=== PATIENT | female | born 1950 | race Caucasian/White ===

== ENCOUNTER → 2017-01-26 | Outpatient (CLI) | payer MEDICARE, OTHER ==
[~2017-01-26] MED LIST: ACTONEL PO; ADVIL 200MG TA200 MG PO; ASPIRIN 81M81 MG/TA2 PO; ATENOLOL25 MG PO; B-12 100 MCG PO; BENADRYL25 M2 PO; BETAPACE 120MG120 MG PO; CARDIZEM CD 18180 MG PO; CELEBREX 200MG200 MG; CITALOPRAM HYDR20 MG; ELIQUIS 5MG PO; EXCEDRIN 250 MG1 TAB PO; INDERAL 10MG10 MG PO; INDERAL LA160 MG PO; INDERAL40 MG PO; MAGNESIUM250 M1 PO; MULTAQ400 MG PO; NATURAL MAGNES200 MG PO; NORCO 325 MG-51 TAB PO; NORVASC 10MG10 MG PO; PREMARIN 0.9MG0.9 MG PO; PRILOSEC 20MG20 MG PO; PRILOSEC10 MG PO
== END ==
LOC: COL.RAD 13:11
PROVIDERS: Urology
DX: D41.02 Neoplasm of uncertain behavior of left kidney (principal); K44.9 Diaphragmatic hernia without obstruction or gangrene; Z85.520 Personal history of malignant carcinoid tumor of kidney; Z90.5 Acquired absence of kidney; Z90.49 Acquired absence of other specified parts of digestive tract; Z90.710 Acquired absence of both cervix and uterus
CPT/HCPCS: Q9967

== ENCOUNTER 2017-05-08 15:00 | Outpatient (RCR) | payer MEDICARE, OTHER | END 2017-06-16 11:34 | disposition still patient (30) | LOC: WSPT 15:00 | DX: M25.561 Pain in right knee (principal); M25.562 Pain in left knee | CPT/HCPCS: G8978-GP; G8979-GP ==

== ENCOUNTER → 2017-08-07 | Outpatient (CLI) | payer MEDICARE, OTHER ==
[~2017-08-07] MED LIST changes: +B-12 500 MCG; +B-12 500 MCG PO; +BENADRYL ALLERG25 M2 PO; +CEPHALEXIN500 M1 PO; +DAZIDOX10 MG PO; +FLEXERIL 1010 MG/TAB PO; +LASIX 20MG TABL20 MG PO; +PERCOCET 325 MG1 TAB PO; +POTASSIUM GLUC595 M1 PO; +PRINIVIL10 MG PO; +TOPROL XL 50MG50 MG PO; +TOPROL XL100 MG PO
== END ==
LOC: COL.RAD 13:24
DX: Z01.812 Encounter for preprocedural laboratory examination (principal); N28.89 Other specified disorders of kidney and ureter
CPT/HCPCS: Q9967

== ENCOUNTER 2017-12-07 11:49 | Inpatient (IN) | payer MEDICARE, OTHER ==
[2017-12-07] VITALS (130 sets, daily range): BP systolic 128–141; BP diastolic 66–94; PULSE 94–125; TEMP 97.9–98.6; O2SAT 88–100
[~2017-12-07] VITALS: Ht 167.6 cm; Wt 109.9 kg
[~2017-12-07 11:49] MED LIST changes: -B-12 500 MCG; -B-12 500 MCG PO; -BENADRYL ALLERG25 M2 PO; -CEPHALEXIN500 M1 PO; -DAZIDOX10 MG PO; -FLEXERIL 1010 MG/TAB PO; -LASIX 20MG TABL20 MG PO; -PERCOCET 325 MG1 TAB PO; -POTASSIUM GLUC595 M1 PO; -PRINIVIL10 MG PO; -TOPROL XL 50MG50 MG PO; -TOPROL XL100 MG PO
[2017-12-07] MEDS ORDERED: ELIQUIS 5MG PO (12:09)
[2017-12-07 13:02] LABS: INFLUENZA A NEGATIVE; INFLUENZA B NEGATIVE
[2017-12-07 13:15] LABS: BASO % 0.7 % (0.0-2.0); EOS % 0.7 % (0-4.0); GRAN # 3.2 (1.4-6.5); GRAN % 56.3 % (42.2-75.2); HEMATOCRIT 39.9 % (37.0-47.0); HEMOGLOBIN 13.1 g/dl (12.5-16.0); LYMPH # 1.9 (1.2-3.4); LYMPH % 33.6 % (20.0-51.0); MEAN CELL VOLUME 83 fl (80.0-100.0); MEAN CORPUSCULAR HEMOGLOBIN 27 pg (27.0-31.0); MEAN CORPUSCULAR HGB CONC 33 g/dl (33.0-37.0); MEAN PLATELET VOLUME 11.6 fl (7.4-10.4); MONO # 0.5 (0.1-0.6); MONO % 8.4 % (1.7-9.3); PLATELET COUNT 225 K/mm3 (130-400)
[2017-12-07 13:28] LABS: ALANINE AMINOTRANSFERASE 28 U/L (9-52); ALBUMIN 4.5 gm/dL (3.5-5.0); ALKALINE PHOSPHATASE 127 U/L (50-136); ANION GAP 14 mmol/L (7-16); AST,SGOT 25 U/L (15-37); BILIRUBIN,TOTAL 0.5 mg/dL (0.0-1.0); BLOOD UREA NITROGEN 28 mg/dL (7-17); CALCIUM 11.1 mg/dL (8.4-10.2); CARBON DIOXIDE 18 mmol/L (22-30); CHLORIDE 107 mmol/L (98-107); CREATININE, serum 1.93 mg/dL (0.52-1.25); GLUCOSE 108 mg/dL (74-106); MAGNESIUM 1.9 mg/dL (1.6-2.3); PHOSPHOROUS 2.8 mg/dL (2.5-4.5); POTASSIUM 4.1 mmol/L (3.4-5.0); SODIUM 139 mmol/L (137-145); TOTAL PROTEIN 8.3 gm/dL (6.4-8.2)
[2017-12-07 13:43] LABS: TROPONIN-I < 0.012 ng/mL (0.000-0.034)
[2017-12-07] MEDS ORDERED: PERCOCET 325 MG1 TAB PO (13:46)
[2017-12-07] MEDS ORDERED: POTASSIUM GLUC595 M1 PO (13:46)
[2017-12-07] MEDS ORDERED: TOPROL XL 50MG50 MG PO (13:47)
[2017-12-07] MEDS ORDERED: FLEXERIL 1010 MG/TAB PO (13:47)
[2017-12-07] MEDS ORDERED: BENADRYL ALLERG25 M2 PO (13:49)
[2017-12-07] MEDS ORDERED: B-12 500 MCG (14:43)
[2017-12-07] MEDS ORDERED: B-12 500 MCG PO (14:46)
[2017-12-08] VITALS (8 sets, daily range): BP systolic 104–132; BP diastolic 51–96; PULSE 71–110; TEMP 97.8–98.4
[2017-12-09 00:14] VITALS: BP 98/54; PULSE 105; TEMP 98.2
[2017-12-09 04:27] VITALS: BP 115/52; PULSE 61; TEMP 98.3
[2017-12-09] MEDS ORDERED: TOPROL XL100 MG PO (07:32)
[2017-12-09 08:07] VITALS: BP 142/76; PULSE 70; TEMP 98.1
== END 2017-12-09 09:29 | disposition home or self-care (01) | DRG 309 ==
LOC: COL.ER 11:49 → ICU 13:04 → MEDICAL 13:04
PROVIDERS: Emergency Medicine
DX: I48.0 Paroxysmal atrial fibrillation (principal); C64.2 Malignant neoplasm of left kidney, except renal pelvis; E86.0 Dehydration; I10 Essential (primary) hypertension; Z90.5 Acquired absence of kidney; M51.36 Other intervertebral disc degeneration, lumbar region
CPT/HCPCS: J7030

== ENCOUNTER 2018-01-04 07:36 | Day surgery (SDC) | payer MEDICARE, OTHER ==
[~2018-01-04] VITALS: Ht 165.1 cm; Wt 111.4 kg
[~2018-01-04 07:36] MED LIST changes: +B-12 500 MCG; +B-12 500 MCG PO; +BENADRYL ALLERG25 M2 PO; +FLEXERIL 1010 MG/TAB PO; +PERCOCET 325 MG1 TAB PO; +POTASSIUM GLUC595 M1 PO; +TOPROL XL 50MG50 MG PO; +TOPROL XL100 MG PO
[2018-01-04] MEDS ORDERED: TOPROL XL100 MG PO (08:28)
[2018-01-04] MEDS ORDERED: BETAPACE 120MG120 MG PO (08:30)
[2018-01-04] MEDS ORDERED: NORVASC 10MG10 MG PO (08:30)
[2018-01-04 08:38] VITALS: BP 146/93; PULSE 83; TEMP 97.9
[2018-01-04 08:43] LABS: INR 1.4 (0.8-3.0); PROTHROMBIN TIME 16.5 SECONDS (9.7-12.8)
[2018-01-04 08:45] LABS: POTASSIUM 4.6 mmol/L (3.4-5.0)
[2018-01-04 09:13] VITALS: BP 154/107; PULSE 104
[2018-01-04 09:19] LABS: THYROID STIMULATING HORMONE 5.14 uIU/mL (0.465-4.680)
== END 2018-01-04 12:07 | disposition home or self-care (01) ==
LOC: COL.CAR 07:36
PROVIDERS: Internal Medicine Cardiovascular Disease
DX: I48.0 Paroxysmal atrial fibrillation (principal); Z79.01 Long term (current) use of anticoagulants; R60.0 Localized edema; I48.91 Unspecified atrial fibrillation; I10 Essential (primary) hypertension; E78.5 Hyperlipidemia, unspecified; Z85.528 Personal history of other malignant neoplasm of kidney; Z90.5 Acquired absence of kidney; Z68.41 Body mass index [BMI] 40.0-44.9, adult; K21.9 Gastro-esophageal reflux disease without esophagitis; F32.9 Major depressive disorder, single episode, unspecified; E03.9 Hypothyroidism, unspecified; I34.0 Nonrheumatic mitral (valve) insufficiency; Z82.49 Family history of ischemic heart disease and other diseases of the circulatory system; Z79.82 Long term (current) use of aspirin; Z88.8 Allergy status to other drugs, medicaments and biological substances
CPT/HCPCS: J2250; J3010

== ENCOUNTER → 2018-03-29 | Outpatient (CLI) | payer MEDICARE, OTHER | LOC: COL.RAD 10:00 | DX: C64.2 Malignant neoplasm of left kidney, except renal pelvis (principal); I48.0 Paroxysmal atrial fibrillation; I51.7 Cardiomegaly; K44.9 Diaphragmatic hernia without obstruction or gangrene; Z90.5 Acquired absence of kidney; Z90.49 Acquired absence of other specified parts of digestive tract; Z90.710 Acquired absence of both cervix and uterus ==

== ENCOUNTER → 2018-06-10 | Outpatient (CLI) | payer MEDICARE, OTHER | LOC: COL.RAD 13:33 | DX: M43.16 Spondylolisthesis, lumbar region (principal); M48.07 Spinal stenosis, lumbosacral region; M51.27 Other intervertebral disc displacement, lumbosacral region; M51.37 Other intervertebral disc degeneration, lumbosacral region ==

== ENCOUNTER → 2018-06-17 | Outpatient (CLI) | payer MEDICARE, OTHER ==
[~2018-06-17] MED LIST changes: +PRINIVIL10 MG PO
== END ==
LOC: COL.RAD 12:17
DX: E04.2 Nontoxic multinodular goiter (principal)

== ENCOUNTER 2018-06-28 13:15 | Outpatient (RCR) | payer MEDICARE, OTHER ==
[~2018-06-28 13:15] MED LIST changes: +DAZIDOX10 MG PO
== END 2018-07-13 15:41 | disposition home or self-care (01) ==
LOC: WSPT 13:15
DX: M54.5 Low back pain (principal); M25.561 Pain in right knee
CPT/HCPCS: G8978-GP; G8979-GP

== ENCOUNTER 2018-07-27 11:02 | Outpatient (CLI) | payer MEDICARE, OTHER ==
[~2018-07-27] VITALS: Ht 167.6 cm; Wt 118.5 kg
[2018-07-27] MEDS ORDERED: LASIX 20MG TABL20 MG PO (11:49)
[2018-07-27 11:52] VITALS: BP 137/70; PULSE 69; TEMP 98.3
[2018-07-27] MEDS ORDERED: CEPHALEXIN500 M1 PO (14:03)
[2018-07-27 14:25] VITALS: BP 143/72; PULSE 62
== END 2018-07-27 15:15 | disposition home or self-care (01) ==
LOC: COL.CAR 11:02
DX: I48.1 Persistent atrial fibrillation (principal); I10 Essential (primary) hypertension; E66.9 Obesity, unspecified; E78.5 Hyperlipidemia, unspecified; J30.9 Allergic rhinitis, unspecified; F32.9 Major depressive disorder, single episode, unspecified; K21.9 Gastro-esophageal reflux disease without esophagitis; E03.9 Hypothyroidism, unspecified; G43.909 Migraine, unspecified, not intractable, without status migrainosus; F41.9 Anxiety disorder, unspecified; M19.90 Unspecified osteoarthritis, unspecified site; Z90.5 Acquired absence of kidney; Z90.710 Acquired absence of both cervix and uterus; Z79.01 Long term (current) use of anticoagulants; Z79.82 Long term (current) use of aspirin; Z85.53 Personal history of malignant neoplasm of renal pelvis; Z82.49 Family history of ischemic heart disease and other diseases of the circulatory system

== ENCOUNTER → 2019-06-21 | Outpatient (CLI) | payer MEDICARE, OTHER ==
[~2019-06-21] MED LIST changes: +CEPHALEXIN500 M1 PO; +LASIX 20MG TABL20 MG PO
== END ==
LOC: COL.RAD 13:11
DX: K44.9 Diaphragmatic hernia without obstruction or gangrene (principal); Z90.5 Acquired absence of kidney; Z90.710 Acquired absence of both cervix and uterus; Z90.49 Acquired absence of other specified parts of digestive tract; Z85.528 Personal history of other malignant neoplasm of kidney

== ENCOUNTER → 2019-11-22 | Outpatient (CLI) | payer MEDICARE, OTHER | LOC: COL.VAS 08:33 | DX: C64.9 Malignant neoplasm of unspecified kidney, except renal pelvis (principal); R60.0 Localized edema; I10 Essential (primary) hypertension; R68.2 Dry mouth, unspecified; Z86.79 Personal history of other diseases of the circulatory system ==

== ENCOUNTER → 2020-08-14 | Outpatient (CLI) | payer MEDICARE, OTHER | LOC: COL.VAS 12:06 | DX: I08.1 Rheumatic disorders of both mitral and tricuspid valves (principal) ==

== ENCOUNTER → 2020-11-06 | Outpatient (CLI) | payer MEDICARE, OTHER | LOC: COL.RAD 09:05 | DX: C64.9 Malignant neoplasm of unspecified kidney, except renal pelvis (principal); E78.5 Hyperlipidemia, unspecified; E83.52 Hypercalcemia; Z85.528 Personal history of other malignant neoplasm of kidney | CPT/HCPCS: A9503 ==

== ENCOUNTER 2021-01-28 09:56 | Day surgery (SDC) | payer MEDICARE, OTHER ==
[2021-01-28] VITALS (7 sets, daily range): BP systolic 138–152; BP diastolic 78–113; PULSE 60–99; TEMP 99.7
[~2021-01-28] VITALS: Ht 167.6 cm; Wt 114.1 kg
[2021-01-28] MEDS ORDERED: ULTRAM 50MG TAB50 MG PO (10:47)
[2021-01-28] MEDS ORDERED: CELEBREX 1100 MG/CAP PO (10:48)
[2021-01-28 11:12] LABS: MEAN CELL VOLUME 67 fl (80.0-100.0); MEAN CORPUSCULAR HGB CONC 28 g/dl (33.0-37.0); MEAN PLATELET VOLUME 10.3 fl (7.4-10.4); PLATELET COUNT 262 K/mm3 (130-400); RED BLOOD COUNT 3.87 M/mm3 (4.10-5.30); REDCELL DISTRIBUTION WIDTH-CV 19.3 % (11.5-14.5)
[2021-01-28 11:21] LABS: HEMOGLOBIN 7.2 g/dl (12.5-16.0); MEAN CORPUSCULAR HEMOGLOBIN 19 pg (27.0-31.0)
[2021-01-28 11:26] LABS: CALCIUM 10.5 mg/dL (8.4-10.2); CREATININE, serum 1.51 (0.52-1.25); MAGNESIUM 1.9 mg/dL (1.6-2.3); POTASSIUM 4.7 mmol/L (3.4-5.0)
--- NOTE | 2021-01-28 11:31 | NUR ---
Report from Ismael HALL. VSS. Pt resting comfortably in bed.
[2021-01-28] MEDS ORDERED: BETAPACE 80MG80 MG PO (11:53)
[2021-01-28 11:55] LABS: THYROID STIMULATING HORMONE 4.04 uIU/mL (0.465-4.680)
[2021-01-28] MEDS ORDERED: NORVASC 5MG5 MG/TAB PO (11:57)
--- NOTE | 2021-01-28 13:15 | NUR ---
INT discontinued intact. Discharge instrcutions given.
--- NOTE | 2021-01-28 13:50 | NUR ---
Transferred to private car by tino
== END 2021-01-28 13:50 | disposition home or self-care (01) ==
LOC: COL.CAR 09:56
PROVIDERS: Internal Medicine Cardiovascular Disease
DX: I48.0 Paroxysmal atrial fibrillation (principal); I10 Essential (primary) hypertension; E78.5 Hyperlipidemia, unspecified; E03.9 Hypothyroidism, unspecified; G43.909 Migraine, unspecified, not intractable, without status migrainosus; K21.9 Gastro-esophageal reflux disease without esophagitis; M19.90 Unspecified osteoarthritis, unspecified site; F32.9 Major depressive disorder, single episode, unspecified; Z95.828 Presence of other vascular implants and grafts; Z85.53 Personal history of malignant neoplasm of renal pelvis; Z90.5 Acquired absence of kidney; Z88.8 Allergy status to other drugs, medicaments and biological substances; Z79.899 Other long term (current) drug therapy; Z20.822 Contact with and (suspected) exposure to COVID-19; Z82.3 Family history of stroke
CPT/HCPCS: J2704

== ENCOUNTER 2021-10-22 10:08 | Observation (INO) | payer MEDICARE, OTHER ==
[~2021-10-22] VITALS: Ht 152.4 cm; Wt 104.6 kg
[2021-10-22] VITALS (9 sets, daily range): BP systolic 171–218; BP diastolic 74–108; PULSE 63–67; TEMP 97.3–99
[~2021-10-22 10:08] MED LIST changes: +BETAPACE 80MG80 MG PO; +CELEBREX 1100 MG/CAP PO; +NORVASC 5MG5 MG/TAB PO; +ULTRAM 50MG TAB50 MG PO
[2021-10-22] MEDS ORDERED: ZYLOPRIM 100MG100 MG PO (13:26)
[2021-10-22] MEDS ORDERED: PRINIVIL10 MG PO ×2 (13:28→13:29)
[2021-10-22] MEDS ORDERED: BENADRYL25 M2 PO (13:28)
[2021-10-22] MEDS ORDERED: LYRICA 50MG CAP50 MG PO (13:35)
[2021-10-22] MEDS ORDERED: POLYMYXIN B/TRIMETH OU (13:39)
[2021-10-22] MEDS ORDERED: PREDFORTE10ML OU (13:40)
[2021-10-22 14:39] LABS: BASO # 0.1 K/mm3 (0.0-0.2); BASO % 0.8 % (0.0-2.0); EOS # 0.2 K/mm3 (0.0-0.7); EOS % 1.7 % (0-4.0); GRAN # 7.8 K/mm3 (1.4-6.5); GRAN % 74.7 % (42.2-75.2); LYMPH # 1.8 K/mm3 (1.2-3.4); LYMPH % 16.8 % (20.0-51.0); MEAN CELL VOLUME 71 fl (80.0-100.0); MEAN CORPUSCULAR HGB CONC 27 g/dl (33.0-37.0); MEAN PLATELET VOLUME 10.5 fl (7.4-10.4); MONO # 0.6 K/mm3 (0.1-0.6); MONO % 5.5 % (1.7-9.3); PLATELET COUNT 295 K/mm3 (130-400); RED BLOOD COUNT 3.84 M/mm3 (4.10-5.30); REDCELL DISTRIBUTION WIDTH-CV 19.5 % (11.5-14.5); RETIC # 0.08 M/mm3 (0.02-0.16)
[2021-10-22 14:40] LABS: HEMATOCRIT 27.4 % (37.0-47.0); HEMOGLOBIN 7.3 g/dl (12.5-16.0); MEAN CORPUSCULAR HEMOGLOBIN 19 pg (27.0-31.0)
[2021-10-22 15:06] LABS: ALANINE AMINOTRANSFERASE 12 U/L (0-55); ALBUMIN 3.6 gm/dL (3.4-4.8); ALKALINE PHOSPHATASE 112 U/L (40-150); ANION GAP 8 mmol/L (7-16); AST,SGOT 17 U/L (5-34); BILIRUBIN,TOTAL 0.4 mg/dL (0.2-1.2); BLOOD UREA NITROGEN 30 mg/dL (10-20); CARBON DIOXIDE 18 mmol/L (23-31); CHLORIDE 112 mmol/L (98-107); CREATININE, serum 1.45 mg/dL (0.57-1.11); GLUCOSE 89 mg/dL (70-99); POTASSIUM 4.8 mmol/L (3.5-4.5); SODIUM 138 mmol/L (136-145); TOTAL PROTEIN 7.8 gm/dL (6.2-8.1)
[2021-10-22 15:07] LABS: TROPONIN-I < 0.010 ng/mL (0.00-0.033)
--- NOTE | 2021-10-22 16:17 | NUR ---
Dr Laws notified of consult.
--- NOTE | 2021-10-22 20:30 | NUR ---
Pt. sitting up in bed. Pt. is A&OX3, assessent complete. IV to lt. wrist patent, Blood transfusion finishing up. Pt. has had elevated BP, will give BP meds. Pt. denies further needs, call light within reach.
--- NOTE | 2021-10-22 20:45 | NUR ---
Blood transfusion complete. Pt. tolerated well. BP elevated, gave PRN meds per orders.
[2021-10-23 03:25] VITALS: BP 172/62; PULSE 67; TEMP 98.7
[2021-10-23 06:53] LABS: BASO # 0.1 K/mm3 (0.0-0.2); BASO % 0.7 % (0.0-2.0); EOS # 0.1 K/mm3 (0.0-0.7); EOS % 1.2 % (0-4.0); GRAN # 8.9 K/mm3 (1.4-6.5); GRAN % 79.2 % (42.2-75.2); LYMPH # 1.3 K/mm3 (1.2-3.4); MEAN CELL VOLUME 69 fl (80.0-100.0); MEAN CORPUSCULAR HGB CONC 29 g/dl (33.0-37.0); MEAN PLATELET VOLUME 10.1 fl (7.4-10.4); MONO # 0.7 K/mm3 (0.1-0.6); MONO % 6.4 % (1.7-9.3); PLATELET COUNT 286 K/mm3 (130-400); RED BLOOD COUNT 4.04 M/mm3 (4.10-5.30); REDCELL DISTRIBUTION WIDTH-CV 19.8 % (11.5-14.5)
[2021-10-23 07:04] LABS: HEMATOCRIT 27.7 % (37.0-47.0); HEMOGLOBIN 8.1 g/dl (12.5-16.0); MEAN CORPUSCULAR HEMOGLOBIN 20 pg (27.0-31.0)
[2021-10-23 07:14] LABS: CALCIUM 11.2 mg/dL (8.4-10.2); CREATININE, serum 1.35 mg/dL (0.57-1.11); POTASSIUM 4.5 mmol/L (3.5-4.5)
[2021-10-23 07:19] VITALS: BP 229/96; PULSE 70; TEMP 98
--- NOTE | 2021-10-23 08:00 | NUR ---
Patient sitting up in bed, complaints of nausea. 100ml emesis, green, liquid. Dr Mobley aware and medication ordered. A&Ox4. VSS. IV CDI. PO medication held until nausea is better. Denies pain. Nurse assisted the patient to the bathroom with a standby assist and cane. No further needs expressed. Call light within reach
--- NOTE | 2021-10-23 10:41 | NUR ---
contact worker met with patient to discuss discharge plan. Patient reports that she lives at home alone in [place]. Patient reports that she has never had any trouble taking care of herself and is independent with her activities of daily living. She reports to using a cane to assist with mobility and has no oxygen needs. PCP is and she utilizes [facility] with no cost difficulty. Patient reports that she does not havea DP- established but is interested in creating one. Form and education provided to the patient. She is and has two adult children. Her daughter Vero ([phone]) lives in [place] and her son Kahlil ([phone]) lives in [place]. Patient verbalizes that she would like to wait to fill the form out until she can speak with her daughter about it. Patient plans on returning home and has no concerns. Discharge plan: Home
[2021-10-23 11:20] VITALS: BP 154/65; PULSE 61; TEMP 98.4
--- NOTE | 2021-10-23 11:38 | NUR ---
First visit from the stock digger. No needs right now.
[2021-10-23 16:08] VITALS: BP 161/67; PULSE 62; TEMP 97.8
[2021-10-23 16:34] LABS: HEMATOCRIT 28.6 % (37.0-47.0); HEMOGLOBIN 8.2 g/dl (12.5-16.0)
--- NOTE | 2021-10-23 19:30 | NUR ---
PT EATS DINNER WITHOUT PROBLEM. DAUGHTER VISITING IN ROOM.
[2021-10-23 19:58] VITALS: BP 151/67; PULSE 62; TEMP 98.7
--- NOTE | 2021-10-23 21:30 | NUR ---
PT TAKES HS MEDS WITHOUT PROBLEM. HAS SL TO LEFT HAND AND DARKENED AREA TO LEFT FOREARM FROM IV IRON INFILTRATE. IS ALERT AND ORIENTED X4. EYE DROPS ADMINISTERED BY PT.
[2021-10-24] VITALS (9 sets, daily range): BP systolic 134–172; BP diastolic 51–72; PULSE 56–64; TEMP 97.4–99.1
--- NOTE | 2021-10-24 06:15 | NUR ---
ASSISTED TO BATHROOM, VOIDS AND BACK TO BED. SCDS ON.
[2021-10-24 07:05] LABS: HEMATOCRIT 26.1 % (37.0-47.0); HEMOGLOBIN 7.4 g/dl (12.5-16.0)
[2021-10-24] MEDS ORDERED: APRESOLINE 10MG10 MG PO ×2 (09:20)
[2021-10-24] MEDS ORDERED: NORVASC 10MG10 MG PO (09:43)
--- NOTE | 2021-10-24 09:51 | NUR ---
Patient alert and oriented, answers questions appropriately. See assessment. Lungs CTA. Heart tones strong and even. No c/o vertigo, states does not feel as weak as previous days. Independent in room with cane. No c/o at this time.
[2021-10-24] MEDS ORDERED: [UNRECOGNIZED DRUG - OTHER] MC (14:06)
[2021-10-24] MEDS ORDERED: FERROUSAL325 MG PO (14:06)
[2021-10-24 14:36] LABS: HEMATOCRIT 33.9 % (37.0-47.0); HEMOGLOBIN 9.7 g/dl (12.5-16.0)
--- NOTE | 2021-10-24 15:44 | NUR ---
Discharge instructions reviewed with patient and daughter, verbalized understanding. Discharged via wheelchair to auto/home with family at 1520.
[2021-10-24] MEDS ORDERED: VITAMIN D31000 IU PO (17:17)
== END 2021-10-24 15:20 | disposition home or self-care (01) ==
LOC: SURG 10:08
PROVIDERS: Physician Assistant; ADMIT Internal Medicine
DX: D63.1 Anemia in chronic kidney disease (principal); I16.0 Hypertensive urgency; I12.9 Hypertensive chronic kidney disease with stage 1 through stage 4 chronic kidney disease, or unspecified chronic kidney disease; N18.9 Chronic kidney disease, unspecified; I48.0 Paroxysmal atrial fibrillation; M17.0 Bilateral primary osteoarthritis of knee; M54.9 Dorsalgia, unspecified; K21.9 Gastro-esophageal reflux disease without esophagitis; E55.9 Vitamin D deficiency, unspecified; E87.2 Acidosis; M10.9 Gout, unspecified; Z87.11 Personal history of peptic ulcer disease; Z85.528 Personal history of other malignant neoplasm of kidney; Z87.39 Personal history of other diseases of the musculoskeletal system and connective tissue; Z90.710 Acquired absence of both cervix and uterus; Z90.89 Acquired absence of other organs; Z90.49 Acquired absence of other specified parts of digestive tract; Z79.899 Other long term (current) drug therapy; Z79.01 Long term (current) use of anticoagulants; Z79.891 Long term (current) use of opiate analgesic
CPT/HCPCS: 99232-AI; 99239; G0008; G0378; J0360; J1756; J2405; J7050; P9016

== ENCOUNTER 2021-12-09 19:26 | Inpatient (IN) | payer MEDICARE, OTHER ==
[~2021-12-09] VITALS: Ht 167.6 cm; Wt 112.7 kg
[~2021-12-09 19:26] MED LIST changes: +APRESOLINE 10MG10 MG PO; +FERROUSAL325 MG PO; +LYRICA 50MG CAP50 MG PO; +POLYMYXIN B/TRIMETH OU; +PREDFORTE10ML OU; +VITAMIN D31000 IU PO; +ZYLOPRIM 100MG100 MG PO; +[UNRECOGNIZED DRUG - OTHER] MC
[2021-12-09 21:48] LABS: BASO % 0.5 % (0.0-2.0); EOS % 0.3 % (0.0-4.0); GRAN # 3.9 K/mm3 (1.4-6.5); GRAN % 67.2 % (42.2-75.2); HEMATOCRIT 37.8 % (37.0-47.0); HEMOGLOBIN 11.4 g/dl (12.5-16.0); LYMPH % 17.4 % (20.0-51.0); MEAN CELL VOLUME 81 fl (80.0-100.0); MEAN CORPUSCULAR HEMOGLOBIN 24 pg (27-31); MEAN CORPUSCULAR HGB CONC 30 g/dl (33.0-37.0); MEAN PLATELET VOLUME 10.8 fl (7.4-10.4); MONO # 0.8 K/mm3 (0.1-0.6); MONO % 14.1 % (1.7-9.3); PLATELET COUNT 164 K/mm3 (130-400); RED BLOOD COUNT 4.68 M/mm3 (4.10-5.30); REDCELL DISTRIBUTION WIDTH-CV 22.5 % (11.5-14.5)
[2021-12-09 23:11] LABS: ALBUMIN 3.4 gm/dL (3.4-4.8); BILIRUBIN,TOTAL 0.3 mg/dL (0.2-1.2); CREATININE, serum 1.73 mg/dL (0.57-1.11); POTASSIUM 5.3 mmol/L (3.5-4.5); TOTAL PROTEIN 7.4 gm/dL (6.2-8.1)
[2021-12-09 23:17] LABS: TROPONIN-I 0.013 ng/mL (0.00-0.033)
[2021-12-10 01:45] VITALS: BP 150/76; PULSE 62; TEMP 97.5
[2021-12-10 03:00] VITALS: BP 131/74; PULSE 59; TEMP 98.2
[2021-12-10 07:00] LABS: BASO % 0.6 % (0.0-2.0); GRAN # 3.3 K/mm3 (1.4-6.5); GRAN % 68.5 % (42.2-75.2); HEMOGLOBIN 10.1 g/dl (12.5-16.0); LYMPH # 0.9 K/mm3 (1.2-3.4); MEAN CELL VOLUME 80 fl (80.0-100.0); MEAN CORPUSCULAR HEMOGLOBIN 24 pg (27-31); MEAN CORPUSCULAR HGB CONC 29 g/dl (33.0-37.0); MEAN PLATELET VOLUME 10.5 fl (7.4-10.4); MONO # 0.6 K/mm3 (0.1-0.6); MONO % 11.3 % (1.7-9.3); PLATELET COUNT 167 K/mm3 (130-400); RED BLOOD COUNT 4.29 M/mm3 (4.10-5.30); REDCELL DISTRIBUTION WIDTH-CV 22.3 % (11.5-14.5)
[2021-12-10 07:02] LABS: HEMATOCRIT 34.5 % (37.0-47.0)
[2021-12-10 07:31] LABS: CALCIUM 9.6 mg/dL (8.4-10.2); CREATININE, serum 1.75 mg/dL (0.57-1.11); POTASSIUM 4.4 mmol/L (3.5-4.5)
[2021-12-10 08:50] VITALS: BP 151/59; PULSE 65; TEMP 98.1
--- NOTE | 2021-12-10 09:08 | NUR ---
PICC canceled by patient's primary care nurse
--- NOTE | 2021-12-10 09:20 | NUR ---
PT ARRIVED TO THE MEDICAL FLOOR AROUND 0145HRS TO [id number]. PT A&O X4, VSS, O2 RA. PT DENIES PAIN, SOB, N/V,D, PALPITATIONS OR DIZZINESS. ADMISSION ASSESSMENT COMPLETE. MED REC COMPLETE. PT ORIENTED TO MEDICAL FLOOR, ROOM AND HOSPITAL POLICY. POC DISCUSSED WITH PT. PT IS HARD OF HEARING. PT VERBALIZED UNDERSTANDING. ALL QUESTIONS AND CONCERNS ADDRESSED. PT EXPRESSED NO ADDITIONAL NEEDS AT THIS TIME. CALL LIGHT WITHIN REACH.
--- NOTE | 2021-12-10 10:22 | NUR ---
Assessment comleted, alert/oriented, vital signs stable, denies pain or discomfort, only complaint is feeling a little fatigued, lungs CTA/ denies resp.difficulty, lungS CTA, heart RRR/ distal pulses are palpable, she is afebrile today, she is tolerting PO intake well and has normal appetite, morning meds given, she was up with stand by assist to bathroom, patient denies other needs at this time, call light in reach, will continue to monitor
--- NOTE | 2021-12-10 10:35 | NUR ---
The patient is COVID positive. SW attempted to contact the patient to discuss discharge plan. She did not answer. SW then contacted the patient's daughter, Vero (ph#[phone]), to complete intake. The patient lives alone in [place]. Vero also lives in [place]. Vero reports that the patient is normally independent with ADLs, but that she has been needing some help to get to the bathroom, with COVID. She has a cane. The patient's PCP is Dr. Micheal Hummel and she receives her medications from [facility]. Vero reports that the patient does not have a DPOA-HC. She states that the patient is and has two children: herself and Kahlil (ph#[phone]). PT has worked with the patient and recommend home. SW informed Vero of this. Vero had no other questions or concerns for SW at this time. SW to continue to follow. *Discharge plan: home*
[2021-12-10 11:32] VITALS: BP 145/74; PULSE 66; TEMP 98
[2021-12-10 17:12] VITALS: BP 127/81; PULSE 64; TEMP 98.2
[2021-12-10 20:52] VITALS: BP 134/67; PULSE 63; TEMP 98.3
[2021-12-11 00:51] VITALS: BP 145/83; PULSE 70; TEMP 98
[2021-12-11 04:17] VITALS: BP 145/69; PULSE 67; TEMP 98.4
[2021-12-11 08:00] VITALS: BP 149/86; PULSE 63; TEMP 97.9
[2021-12-11] MEDS ORDERED: MONODOX100 PO (09:18)
[2021-12-11] MEDS ORDERED: PROAIR HFA0.09 MG/AC IH (09:19)
[2021-12-11] MEDS ORDERED: DECADRON6 MG PO (09:19)
--- NOTE | 2021-12-11 11:54 | NUR ---
The patient is to discharge back home today, 12/11. SW notified the patient's daughter, Vero. Vero reports that the patient already notified her and that she is almost to the hospital to roller picker the patient. SW notified the RN. No additional needs at this time.
--- NOTE | 2021-12-11 13:11 | NUR ---
Per Paulo RN on floor discharged pt via w/c with medical staff. INT dc'd, tip intact. Pt left with all belongings, daughter to drive home, criteria met.
== END 2021-12-11 12:00 | disposition home or self-care (01) | DRG 177 ==
LOC: COL.ER 19:26 → MEDICAL 12-10 00:22
PROVIDERS: Emergency Medicine; Personal Emergency Response Attendant; Student in an Organized Health Care Education/Training Program; ADMIT Internal Medicine
DX: U07.1 COVID-19 (principal); J12.82 Pneumonia due to coronavirus disease 2019; N17.9 Acute kidney failure, unspecified; G93.40 Encephalopathy, unspecified; I48.91 Unspecified atrial fibrillation; D64.9 Anemia, unspecified; M10.9 Gout, unspecified; K21.9 Gastro-esophageal reflux disease without esophagitis; M54.50 Low back pain, unspecified; E87.5 Hyperkalemia; I12.9 Hypertensive chronic kidney disease with stage 1 through stage 4 chronic kidney disease, or unspecified chronic kidney disease; N18.9 Chronic kidney disease, unspecified; Z85.528 Personal history of other malignant neoplasm of kidney
CPT/HCPCS: 99222-AI; 99239; J0610; J0696; J1815; J7030; J7040; J8540

== ENCOUNTER 2022-09-26 05:12 | Inpatient (IN) | payer MEDICARE, OTHER ==
[~2022-09-26] VITALS: Ht 167.6 cm; Wt 117.4 kg
[2022-09-26] VITALS (314 sets, daily range): BP systolic 80–110; BP diastolic 40–58; PULSE 49–67; TEMP 97.8–98.8; O2SAT 76–100
[~2022-09-26 05:12] MED LIST changes: +DECADRON6 MG PO; +MONODOX100 PO; +PROAIR HFA0.09 MG/AC IH
[2022-09-26 06:01] LABS: HEMATOCRIT 40.1 % (37.0-47.0); HEMOGLOBIN 13.6 g/dl (12.5-16.0); MEAN CELL VOLUME 91 fl (80.0-100.0); MEAN CORPUSCULAR HEMOGLOBIN 31 pg (27-31); MEAN CORPUSCULAR HGB CONC 34 g/dl (33.0-37.0); MEAN PLATELET VOLUME 11.3 fl (7.4-10.4); PLATELET COUNT 182 K/mm3 (130-400); RED BLOOD COUNT 4.42 M/mm3 (4.10-5.30); REDCELL DISTRIBUTION WIDTH-CV 14.7 % (11.5-14.5)
[2022-09-26 06:21] LABS: ALANINE AMINOTRANSFERASE 75 U/L (0-55); ALBUMIN 3.3 gm/dL (3.4-4.8); ALKALINE PHOSPHATASE 134 U/L (40-150); ANION GAP 10 mmol/L (7-16); AST,SGOT 134 U/L (5-34); BILIRUBIN,TOTAL 0.7 mg/dL (0.2-1.2); BLOOD UREA NITROGEN 56 mg/dL (10-20); C-REACTIVE PROTEIN 1.84 mg/dL (0.00-0.50); CALCIUM 10.1 mg/dL (8.4-10.2); CARBON DIOXIDE 15 mmol/L (23-31); CHLORIDE 112 mmol/L (98-107); CREATININE, serum 2.94 mg/dL (0.57-1.11); GLUCOSE 103 mg/dL (70-99); LIPASE 51 U/L (8-78); POTASSIUM 4.6 mmol/L (3.5-4.5); SODIUM 137 mmol/L (136-145); TOTAL PROTEIN 6.8 gm/dL (6.2-8.1)
[2022-09-26] MEDS ORDERED: PRINIVIL10 MG PO (06:22)
[2022-09-26] MEDS ORDERED: BENADRYL25 M2 PO (06:23)
[2022-09-26 06:24] LABS: BAND 29 % (0-10); LYMPHOCYTE 14 % (20.0-51.0); NEUTROPHILS 50 % (42.0-75.2)
[2022-09-26] MEDS ORDERED: LASIX 40MG TABL40 MG PO (06:24)
[2022-09-26] MEDS ORDERED: EXCEDRIN1 TAB PO (06:24)
[2022-09-26 06:25] LABS: PLATELET ESTIMATE NORMAL (NORMAL)
[2022-09-26 06:58] LABS: TROPONIN-I < 0.010 ng/mL (0.00-0.033)
--- NOTE | 2022-09-26 12:54 | NUR ---
PATIENT BP STILL LOW. PATIENT ONLY COMPLAINT OF BEING TIRED. SHE IS AWAKE ALERT AND TALKING. NOTIFIED
--- NOTE | 2022-09-26 12:56 | NUR ---
MANUAL BP BY YANNI HALL OF 82/54 . BOLUS INFUSING
--- NOTE | 2022-09-26 15:39 | NUR ---
ATTEMPTED TO CALL REPORT TO FIRE PROTECTION EQUIPMENT TECHNICIAN DENISE. FIRE PROTECTION EQUIPMENT TECHNICIAN UNABLE TO TAKE REPORT AT THIS TIME. INSURED SHE WAS AWARE PATIENTS BP LOW. FIRE PROTECTION EQUIPMENT TECHNICIAN TO CALL BACK WHEN AVAILABLE.
--- NOTE | 2022-09-26 16:00 | NUR ---
CONFIRMED WITH LAB HYDROGRAPHY TEACHER PATIENTS BLOOD CULTURE DRAWN. THIS RN TO BEGIN ANTX.
--- NOTE | 2022-09-26 16:40 | NUR ---
PT ARRIVES TO ICU 5 FROM MEDICAL 342 AT THIS TIME. PT TRANSFERED TO ICU DUE TO HYPOTENSION. PT ALERT AND ORIENTED UPON ARRIVAL. RICARDA PICC AND RIGHT AC PIV IN PLACE. NS INFUSING AT 75ML/HR. PT OFFERS NO COMPLAINTS. PT DOES STATE THAT HER BLADDER FEELS FULL BUT SHE HAS BEEN UNABLE TO VOID. THIS NURSE WILL PERFORM BLADDER SCAN.
--- NOTE | 2022-09-26 16:48 | NUR ---
REPORT GIVEN TO DENISE HALL. PATIENT TRANSFERED DOWN TO ICU 5. HAND OFF GIVEN TO DENISE HALL.
[2022-09-27] VITALS (1282 sets, daily range): BP systolic 79–145; BP diastolic 46–88; PULSE 59–97; TEMP 97.8–98.5; O2SAT 86–100
[2022-09-27 04:55] LABS: BASO # 0.1 K/mm3 (0.0-0.2); BASO % 0.4 % (0.0-2.0); EOS # 0.1 K/mm3 (0.0-0.7); EOS % 0.9 % (0.0-4.0); LYMPH # 1.9 K/mm3 (1.2-3.4); LYMPH % 14.3 % (20.0-51.0); MEAN CELL VOLUME 92 fl (80.0-100.0); MEAN CORPUSCULAR HGB CONC 33 g/dl (33.0-37.0); MEAN PLATELET VOLUME 11.4 fl (7.4-10.4); MONO # 1.2 K/mm3 (0.1-0.6); PLATELET COUNT 154 K/mm3 (130-400); RED BLOOD COUNT 3.56 M/mm3 (4.10-5.30); REDCELL DISTRIBUTION WIDTH-CV 14.9 % (11.5-14.5)
[2022-09-27 05:04] LABS: HEMATOCRIT 32.9 % (37.0-47.0); HEMOGLOBIN 10.8 g/dl (12.5-16.0); MEAN CORPUSCULAR HEMOGLOBIN 30 pg (27-31)
[2022-09-27 05:13] LABS: CALCIUM 9.1 mg/dL (8.4-10.2); CREATININE, serum 2.68 mg/dL (0.57-1.11); POTASSIUM 4.3 mmol/L (3.5-4.5)
--- NOTE | 2022-09-27 07:00 | NUR ---
REPORT RECEIVED FROM RAFAEL MERCEDES; PATIENT CURRENTLY ASLEEP IN BED WITH VITAL SIGNS WITHIN NORMAL LIMITS. PATIENT IS ON LEVOPHED AND IV FLUIDS RUNNING THROUGH HER LEFT UPPER ARM PICC. PATIENT HAS DAVALOS CATHETER TO MANAGE URINARY RETENTION AND OUTPUT HAS INCREASED SINCE PLACING THE DAVALOS.
--- NOTE | 2022-09-27 11:34 | NUR ---
SW met with pt to complete intake. Pt reports she lives at home alone and is independent on all ADLS and does use a cane. Pt reports her next of kin is her daughter Vero ph# [phone]. Pt reports she gets medications from [facility] and pcp is [facility]. Pt reports she does not have a DPAO-HC and would like to speak to her kids first and will return the form to hospital. SW left DPOA-HC form with pt. No other needs at this time. DC: Home.
--- NOTE | 2022-09-27 12:15 | NUR ---
Systems Technologist rounds: Patient sleeping. Systems Technologistjusten chavez for Patient.
[2022-09-28] VITALS (1013 sets, daily range): BP systolic 112–126; BP diastolic 58–82; PULSE 57–65; TEMP 97.5–98.7; O2SAT 89–100
[2022-09-28 06:01] LABS: BASO % 0.5 % (0.0-2.0); EOS # 0.2 K/mm3 (0.0-0.7); EOS % 1.9 % (0.0-4.0); GRAN # 5.6 K/mm3 (1.4-6.5); GRAN % 70.7 % (42.2-75.2); LYMPH # 1.3 K/mm3 (1.2-3.4); LYMPH % 16.9 % (20.0-51.0); MEAN CELL VOLUME 92 fl (80.0-100.0); MEAN CORPUSCULAR HGB CONC 33 g/dl (33.0-37.0); MEAN PLATELET VOLUME 11.9 fl (7.4-10.4); MONO # 0.8 K/mm3 (0.1-0.6); MONO % 9.6 % (1.7-9.3); PLATELET COUNT 131 K/mm3 (130-400); RED BLOOD COUNT 3.16 M/mm3 (4.10-5.30); REDCELL DISTRIBUTION WIDTH-CV 14.9 % (11.5-14.5)
[2022-09-28 06:03] LABS: HEMATOCRIT 29.1 % (37.0-47.0); HEMOGLOBIN 9.6 g/dl (12.5-16.0); MEAN CORPUSCULAR HEMOGLOBIN 30 pg (27-31)
[2022-09-28 06:11] LABS: CALCIUM 9.5 mg/dL (8.4-10.2); CREATININE, serum 1.88 mg/dL (0.57-1.11)
[2022-09-29] VITALS (408 sets, daily range): BP systolic 141–156; BP diastolic 58–88; PULSE 57–67; TEMP 97.6–98.3; O2SAT 92–99
--- NOTE | 2022-09-29 08:20 | NUR ---
PT STATES SHE IS FEELING WELL THIS MORNING AND IS PLANNING ON ASKING DR. LUBIN IF SHE CAN GO HOME TODAY. THIS NURSE INFORMED PT THAT THEY WOULD LIKE HER TO HAVE A GI CONSULT PRIOR TO DISCHARGE. PT INFORMED THIS NURSE THAT SHE FOLLOWS WITH GI ALREADY AND HAS AN OUTPATIENT COLONOSCOPY SCHEDULED. THIS NURSE WILL MAKE DR. LUBIN AWARE.
--- NOTE | 2022-09-29 12:49 | NUR ---
SW met with patient to follow up on recommendation of home with OP PT. Patient states that she has been to [facility] before and did not like it there. Informed her about [facility] or [facility]. Patient reports that she doesn't know anything about either and would like a referral sent to both so she can "try them out".
[2022-09-29 12:56] LABS: HEMATOCRIT 36.6 % (37.0-47.0)
[2022-09-29 12:59] LABS: ALBUMIN 3.1 gm/dL (3.4-4.8); BILIRUBIN,DIRECT 0.2 mg/dL (0.0-0.5); BILIRUBIN,TOTAL 0.4 mg/dL (0.2-1.2); CALCIUM 10.6 mg/dL (8.4-10.2); CREATININE, serum 1.5 mg/dL (0.57-1.11); POTASSIUM 4.1 mmol/L (3.5-4.5); TOTAL PROTEIN 6.6 gm/dL (6.2-8.1)
--- NOTE | 2022-09-29 18:29 | NUR ---
PATIENT CAME TO THE FLOOR AT 1530. SAY RINALDIOX4. HAS A DOUBLE LUMEN PICC TO [facility], NO ISSUES. CONSENT FORMS SIGNED FOR PROCEDURE 09/30/22 UPPER AND LOWER SCOPE. PATIENT WILL BE NPO AT MIDNIGHT
[2022-09-30] VITALS (8 sets, daily range): BP systolic 140–160; BP diastolic 63–82; PULSE 63–75; TEMP 97.5–98.8
[2022-09-30 06:17] LABS: HEMATOCRIT 38.4 % (37.0-47.0); HEMOGLOBIN 12.5 g/dl (12.5-16.0); MEAN CELL VOLUME 93 fl (80.0-100.0); MEAN CORPUSCULAR HEMOGLOBIN 30 pg (27-31); MEAN CORPUSCULAR HGB CONC 33 g/dl (33.0-37.0); MEAN PLATELET VOLUME 11.6 fl (7.4-10.4); PLATELET COUNT 179 K/mm3 (130-400); RED BLOOD COUNT 4.11 M/mm3 (4.10-5.30); REDCELL DISTRIBUTION WIDTH-CV 14.8 % (11.5-14.5)
[2022-09-30 06:32] LABS: ALBUMIN 3.4 gm/dL (3.4-4.8); CALCIUM 10.8 mg/dL (8.4-10.2); CREATININE, serum 1.39 mg/dL (0.57-1.11); MAGNESIUM 1.6 mg/dL (1.6-2.6); PHOSPHOROUS 1.7 mg/dL (2.3-4.7)
[2022-09-30 07:13] LABS: BAND 1 % (0-10); EOSINOPHIL 4 % (0-4); HYPOCHROMIA 1+; LYMPHOCYTE 12 % (20.0-51.0); NEUTROPHILS 79 % (42.0-75.2); PLATELET ESTIMATE NORMAL (NORMAL)
[2022-09-30] MEDS ORDERED: ASPIRIN 81M81 MG/TA2 PO (08:33)
[2022-09-30] MEDS ORDERED: SODIUM BICARBO650 MG PO (08:48)
[2022-09-30] MEDS ORDERED: CANASA 1000MG1000 MG RC (12:30)
[2022-09-30] MEDS ORDERED: OMNICEF 300MG300 MG PO (12:33)
[2022-09-30] MEDS ORDERED: FLAGYL500 MG PO (12:33)
--- NOTE | 2022-09-30 16:09 | NUR ---
Discharge paperwork reviewed with patient and her daughter. All questions answered at this time. PICC removed by Suha. Pt wheeled out of facility by staff member at this time.
== END 2022-09-30 16:09 | disposition home or self-care (01) | DRG 871 ==
LOC: COL.ER 05:12 → ICU 08:27 → MEDICAL 08:27 → ICU 16:11 → MEDICAL 09-29 18:23
PROVIDERS: Emergency Medicine; Internal Medicine; Internal Medicine Gastroenterology; Physician Assistant; ADMIT Student in an Organized Health Care Education/Training Program
PROC: 02HV33Z Insertion of Infusion Device into Superior Vena Cava, Percutaneous Approach (ICD-10-PCS; principal; 2022-09-26)
PROC: 0DB68ZX Excision of Stomach, Via Natural or Artificial Opening Endoscopic, Diagnostic (ICD-10-PCS; 2022-09-30)
PROC: 0DBK8ZX Excision of Ascending Colon, Via Natural or Artificial Opening Endoscopic, Diagnostic (ICD-10-PCS; 2022-09-30)
PROC: 0DBP8ZX Excision of Rectum, Via Natural or Artificial Opening Endoscopic, Diagnostic (ICD-10-PCS; 2022-09-30)
PROC: 0DBG8ZX Excision of Left Large Intestine, Via Natural or Artificial Opening Endoscopic, Diagnostic (ICD-10-PCS; 2022-09-30)
PROC: 0DBH8ZX Excision of Cecum, Via Natural or Artificial Opening Endoscopic, Diagnostic (ICD-10-PCS; 2022-09-30)
PROC: 0DB98ZX Excision of Duodenum, Via Natural or Artificial Opening Endoscopic, Diagnostic (ICD-10-PCS; 2022-09-30 10:15)
DX: A41.9 Sepsis, unspecified organism (principal); R65.21 Severe sepsis with septic shock; E87.20 Acidosis, unspecified; N17.9 Acute kidney failure, unspecified; I48.91 Unspecified atrial fibrillation; I10 Essential (primary) hypertension; M10.9 Gout, unspecified; K21.9 Gastro-esophageal reflux disease without esophagitis; I95.9 Hypotension, unspecified; I44.0 Atrioventricular block, first degree; K52.9 Noninfective gastroenteritis and colitis, unspecified; E86.1 Hypovolemia; E87.5 Hyperkalemia; M54.50 Low back pain, unspecified; D13.1 Benign neoplasm of stomach; K44.9 Diaphragmatic hernia without obstruction or gangrene; K29.30 Chronic superficial gastritis without bleeding; D12.2 Benign neoplasm of ascending colon; D12.0 Benign neoplasm of cecum; D50.9 Iron deficiency anemia, unspecified; G89.29 Other chronic pain; Z85.528 Personal history of other malignant neoplasm of kidney; Z79.01 Long term (current) use of anticoagulants; Z90.710 Acquired absence of both cervix and uterus; Z90.49 Acquired absence of other specified parts of digestive tract; Z88.8 Allergy status to other drugs, medicaments and biological substances; Z23 Encounter for immunization
CPT/HCPCS: C1751; C9113; J0696; J2405; J2543; J2704; J3010; J3475; J7030; J7040; J7060; J7120